=== PATIENT | female | born 1955 | race Caucasian/White ===

== ENCOUNTER 2018-09-10 08:20 | Day surgery (SDC) | payer MEDICAID ==
[2018-09-08 14:26] LABS: HEMATOCRIT 39.7 % (36.0-48.0); HEMOGLOBIN 13.3 g/dL (12-16); MCH 31.8 pg (26.0-34.0); MCHC 33.5 g/dL (31.0-37.0); RBC 4.18 10x6/uL (4.00-5.40); RDW 13.7 % (11.5-14.5)
[2018-09-08 14:43] LABS: WBC 7.5 10x3/uL (4.8-10.8)
[~2018-09-10] VITALS: Ht 170.2 cm; Wt 65.8 kg
--- NOTE | ~2018-09-10 | OP ---
PATIENT NAME: JOSE CAMEJO MEDICAL RECORD: [id number] :57 LOCATION:D.OPS ADMISSION DATE: SURGEON: IAN CUNNINGHAM MD DATE OF OPERATION: 09/10/2018 PRINCIPAL DIAGNOSIS: Multiple colon polyps greater than 85. POSTOPERATIVE DIAGNOSIS: Multiple colon polyps greater than 85. PROCEDURES: 1. Total colonoscopy to cecum. 2. Polypectomies times 2 utilizing endoscopic mucosal resection. 3. Snare polypectomies times 2. 4. Hot biopsy forceps polypectomies times 3. 5. Ablation of small adenomatous-appearing polyps within the rectum x10. SURGEON: Ian Cunningham MD INSTALLER MOLDING AND TRIM: None. BLOOD LOSS: Minimal. ANESTHESIA: General. COMPLICATIONS: None. The risks, possible complications and alternatives to procedure were explained to the patient. She elects to proceed. OPERATIVE COURSE: The patient was conveyed to the operating room electively on 09/10/2018. General anesthesia was induced by the anesthesia staff. The patient was placed in the Benavides position. A digital rectal examination was performed. A colonoscope was inserted through the anus. It was easily advanced to the cecum. The prep was marginal. There were many adenomatous-appearing polyps ranging in size from 5 mm to some that were on stalks, they were likely 3 cm in diameter. It could take perhaps 10 colonoscopies to clear the patient of all these polyps and the patient is going to be a significant risk for post-polypectomy syndromes, perforations, and for degeneration of some of these polyps into malignancies. In fact, some of these polyps may represent an invasive malignancy. My plan for this patient is to remove the most worrisome of these polyps, which is in the ascending colon and then clear the rectum of polyps and then perform a subtotal colectomy sometime in the near future with an ileorectostomy. That way, the patient could be surveilled through proctoscopy, which is going to be much easier to do than a complete colonoscopy. I think that if the patient does not undergo a subtotal colectomy and then eventually she will develop an invasive malignancy. Endoscopic mucosal resection was performed at 2 sites; one in the ascending colon and one in the rectum. This was performed in the same way and it was with submucosal injection of Eleview and then I used the snare to snare off the polyp. I then ablated the polypoid base with the argon plasma stripper opaquer utilizing the right colon setting in the forced mode. The polyp was then grasped with an endoscopic retrieval net and was withdrawn through the anus. OPERATIVE REPORT [id number] JOSE CAMEJO I then readvanced the endoscope. There were 2 polyps that were amenable to snare polypectomy. Both these were piecemeal snare polypectomies. The snare was utilized and placed around the base of the polyp. Utilizing the coagulation setting in the cut setting, I removed these 2 polyps in pieces. I then ablated the polypoid base with the argon plasma stripper opaquer. The pieces of the polyps were then grasped with an endoscopic retrieval net and were withdrawn out through the anus. I then re-advanced the scope again. I performed hot biopsy forceps polypectomies x3. I then ablated 10 of these smaller polyps, which appeared to be adenomatous polyps and were all less than 9 mm in diameter. A retroflexed view was obtained in the rectum. I then unretroflexed the scope and removed it under direct vision. I will see the patient in my office in 2-3 weeks. I will plan for HALS with subtotal colectomy sometime in the future with an ileorectal anastomosis. TRANSINT:[id number] Voice Confirmation ID: [id number] DOCUMENT ID: [id number] IAN CUNNINGHAM MD at 6753 CC: [facility] LEONARDO and ALONDRA MARROQUIN DO [id number] DICTATION DATE: 09/10/18 163 SENIOR ENVIRONMENTAL CONSULTANT: 09/10/18 2252 [facility] 09/10/18 [facility] [address] [place] [address]
[~2018-09-10 08:20] MED LIST: ATARAX 25 MG TA25 MG PO; MOBIC7.5 MG PO; SYNTHROID88 MCG PO; TRAZODONE HCL150 MG PO
[2018-09-10 09:29] VITALS: BP 120/60; Ht 170.2 cm; Wt 65.8 kg
== END 2018-09-10 17:56 | disposition home or self-care (01) ==
LOC: D.OPS 08:20
PROVIDERS: Anesthesiology
DX: D12.2 Benign neoplasm of ascending colon (principal); D12.5 Benign neoplasm of sigmoid colon; D12.8 Benign neoplasm of rectum; Z01.812 Encounter for preprocedural laboratory examination

== ENCOUNTER 2018-11-03 08:00 | Inpatient (IN) | payer MEDICAID ==
[2018-11-02 14:09] LABS: HEMATOCRIT 39.1 % (36.0-48.0); HEMOGLOBIN 13.2 g/dL (12-16); MCH 31.7 pg (26.0-34.0); MCHC 33.8 g/dL (31.0-37.0); MCV 93.8 fL (80.0-100.0); MEAN PLATELET VOLUME 9.1 fL (7.4-10.4); RBC 4.17 10x6/uL (4.00-5.40); RDW 13.7 % (11.5-14.5)
[~2018-11-03] VITALS: Ht 170.2 cm; Wt 71.2 kg
[2018-11-03] VITALS (9 sets, daily range): BP systolic 114–133; BP diastolic 60–77; BMI 24.6
--- NOTE | ~2018-11-03 | MORECARE ---
CASE MANAGEMENT DISCHARGE SUMMARY PATIENT: JOSE CAMEJO UNIT: [id number] ADM DATE: 11/03/18 AGE: 63 : 57 SEX: F ROOM/BED: D.2216 AUTHOR: AMBER CHANEY PHYSICIAN: REFERRING PHYSICIAN: IAN CUNNINGHAM MD DATE OF SERVICE: 11/08/18 Discharge Plan Patient Name: JOSE CAMEJO Facility: [facility]:[place] : 1955 Planned Disposition: Home Anticipated Discharge Date: Discharge Date: Expected LOS: Initial Reviewer: [email or web address] Initial Review Date: 11/03/2018 Generated: 11/08/18 12:44 pm Comments DCP- Discharge Planning Updated by [email or web address]: Fina Rose on 11/08/18 10:[address] Patient Name: JOSE CAMEJO Encounter No: [id number] : 1955 Primary Insurance: Synchronized [facility] Anticipated DC Date: Planned Disposition: Home External Planned Provider: : DCP follow-up note: Patient and family in agreement with discharge plan. No changes to plan. Case management will follow and assist as needed. Fina Rose DCP- Discharge Planning Updated by [email or web address]: Fina Rose on 11/04/18 2:[address] Patient Name: JOSE CAMEJO Admission Status: Elective Accout number: [id number] Admission Date: 11-03-2018 : 1955 Admission Diagnosis: Attending: IAN CUNNINGHAM Current LOS: 1 Anticipated DC Date: Planned Disposition: Home Primary Insurance: [employer] [facility] Discharge Planning Comments: CM met with patient to assess discharge planning needs. Patient stated that she lives independent at home and plans to return there when she is discharged. She has a friend who is staying with her that can help her if needed. She does not use any DME and does not thin that she will need anything at discharge. Her friend Sharan will be the one to drive her home. She stated her home is safe to return there are 5 steps to enter in her home. CM will continue to follow and assist with DC planning needs Operations Research Director: Fina Rose DCPIA - Discharge Planning Initial Assessment Updated by [email or web address]: Fina Rose on 11/04/18 3:51 pm * Is the patient Alert and Oriented? Yes * How many steps to enter\exit or inside your home? * PCP [facility] * [facility]acy [facility] * Preadmission Environment Home Alone * ADLs Independent * Equipment None * List name and contact numbers for known caregivers / representatives who currently or will assist patient after discharge: SHARAN CANTRELL (FRIEND) [phone] * Verbal permission to speak to the caregivers and representatives has been obtained from the patient. Yes * Community resources currently utilized None * Additional services required to return to the preadmission environment? No * Can the patient safely return to the preadmission environment? Yes * Has this patient been hospitalized within the prior 30 days at any hospital? No Last DP export: 11/04/18 3:01 Patient Name: JOSE CAMEJO Page 21551 at 1144 All edits/amendments must be made on the electronic document DICTATION DATE: 11/08/18 114 C D AREA SUPERVISOR: HERMINIO 11/08/18 1144 RPT#: [id number] DC DATE: STATUS: ADM IN [facility] [address] [place] [address] END OF REPORT
--- NOTE | ~2018-11-03 | MORECARE ---
CASE MANAGEMENT DISCHARGE SUMMARY PATIENT: JOSE CAMEJO UNIT: [id number] ADM DATE: 11/03/18 AGE: 63 : 57 SEX: F ROOM/BED: D.2216 AUTHOR: AMBER CHANEY PHYSICIAN: REFERRING PHYSICIAN: IAN CUNNINGHAM MD DATE OF SERVICE: 11/04/18 Discharge Plan Patient Name: JOSE CAMEJO [facility] [facility] 1955 Planned Disposition: Home Anticipated Discharge Date: Discharge Date: Expected LOS: Initial Reviewer: [email or web address] Initial Review Date: 11/03/2018 Generated: 11/04/18 4:53 pm DCPIA - Discharge Planning Initial Assessment Updated by [email or web address]: Fina Rose on 11/04/18 3:51 pm * Is the patient Alert and Oriented? Yes * How many steps to enter\exit or inside your home? * [facility]CP [facility] * [facility] * Preadmission Environment Home Alone * ADLs Independent * Equipment None * List name and contact numbers for known caregivers / representatives who currently or will assist patient after discharge: SHARAN CANTRELL (FRIEND) [phone] * Verbal permission to speak to the caregivers and representatives has been obtained from the patient. Yes * Community resources currently utilized None * Additional services required to return to the preadmission environment? No * Can the patient safely return to the preadmission environment? Yes * Has this patient been hospitalized within the prior 30 days at any hospital? No Patient Name: JOSE CAMEJO Page 54552 at 1553 All edits/amendments must be made on the electronic document DICTATION DATE: 11/04/18 155 PERSONAL TRAINER: HERMINIO 11/04/18 1552 RPT#: [id number] DC DATE: STATUS: ADM IN [facility] [address] [place] [address] END OF REPORT
--- NOTE | ~2018-11-03 | MORECARE ---
CASE MANAGEMENT DISCHARGE SUMMARY PATIENT: JOSE CAMEJO UNIT: [id number] ADM DATE: 11/03/18 AGE: 63 : 57 SEX: F ROOM/BED: D.2216 AUTHOR: RITUDOC PHYSICIAN: REFERRING PHYSICIAN: IAN CUNNINGHAM MD DATE OF SERVICE: 11/04/18 Discharge Plan Patient Name: JOSE CAMEJO Facility: [facility]:[place] : 1955 Planned Disposition: Home Anticipated Discharge Date: Discharge Date: Expected LOS: Initial Reviewer: [email or web address] Initial Review Date: 11/03/2018 Generated: 11/04/18 5:01 pm Comments DCP- Discharge Planning Updated by [email or web address]: Fina Rose on 11/04/18 2:[address] Patient Name: JOSE CAMEJO Admission Status: Elective Accout number: [id number] Admission Date: 11-03-2018 : 1955 Admission Diagnosis: Attending: IAN CUNNINGHAM Current LOS: 1 Anticipated DC Date: Planned Disposition: Home Primary Insurance: [place] [employer] [place] Discharge Planning Comments: CM met with patient to assess discharge planning needs. Patient stated that she lives independent at home and plans to return there when she is discharged. She has a friend who is staying with her that can help her if needed. She does not use any DME and does not thin that she will need anything at discharge. Her friend Sharan will be the one to drive her home. She stated her home is safe to return there are 5 steps to enter in her home. CM will continue to follow and assist with DC planning needs Irrigation Pump Installer: Fina Rose DCPIA - Discharge Planning Initial Assessment Updated by [email or web address]: Fina Rose on 11/04/18 3:51 pm * Is the patient Alert and Oriented? Yes * How many steps to enter\exit or inside your home? * [facility]CP [facility] * [facility] * Preadmission Environment Home Alone * ADLs Independent * Equipment None * List name and contact numbers for known caregivers / representatives who currently or will assist patient after discharge: SHARAN CANTRELL (FRIEND) [phone] * Verbal permission to speak to the caregivers and representatives has been obtained from the patient. Yes * Community resources currently utilized None * Additional services required to return to the preadmission environment? No * Can the patient safely return to the preadmission environment? Yes * Has this patient been hospitalized within the prior 30 days at any hospital? No Last DP export: 11/04/18 2:53 Patient Name: JOSE CAMEJO Page 22155 at 1601 All edits/amendments must be made on the electronic document DICTATION DATE: 11/04/181599 JEWELRY COATER: HERMINIO 11/04/181599 RPT#: [id number] DC DATE: STATUS: ADM IN [facility] [address] [place] [address] END OF REPORT
--- NOTE | ~2018-11-03 | OP ---
PATIENT NAME: JOSE CAMEJO MEDICAL RECORD: [id number] :57 LOCATION:D.MS Britt2216 ADMISSION DATE:11/03/18 SURGEON: IAN CUNNINGHAM MD DATE OF OPERATION: 11/03/2018 PREOPERATIVE DIAGNOSIS: Colonic polyposis. POSTOPERATIVE DIAGNOSIS: Colonic polyposis. PROCEDURE: Open subtotal colectomy. SURGEON: Ian Cunningham MD BUSINESS OFFICE MANAGER: Christal Lopez APN BLOOD LOSS: 200 cc. ANESTHESIA: General. COMPLICATIONS: None. The risks, possible complications and alternatives to procedure were explained to the patient. She elects to proceed. She wanted to see me preoperatively. I went over to the outpatient department and spoke to her as well as to a friend. We again discussed the reason for performing a subtotal colectomy. She has dozens and dozens of polyps and these likely are all adenomatous polyps. She is going to be at high risk for developing a colon malignancy if she does not already have one. I have gone and endoscopically removed all of the rectal polyps that I could identify. We were hoping today to remove her colon so that it does not need to be surveilled in the future and also will eliminate it as a source of polyp formation and decrease the chance that she will develop a malignancy in the future. OPERATIVE COURSE: The patient was conveyed to the operating room electively on 11/03/2018. General anesthesia was induced by the anesthesia staff. The patient was placed in lithotomy position in an adjustable stirrups. The abdomen and genitals were sterilely prepped and draped. A lower midline incision was accomplished through a prior scar. Sharp dissection was carried down to the level of the anterior fascia, which was incised. Peritoneal cavity was entered sharply. An Flo retractor was placed. We began on the right side of the abdomen. We took down the fold of Treves. I then stapled across the distal ileum with a KISHAN-75 stapler utilizing a blue load. We incised along the white line of Toldt and also mobilized the hepatic flexure of the colon. We swept down the duodenum as well as the right ureter and both of these were retracted for protection. I began to seal and divide the right colonic mesentery. This was done with the Super Jaw EnSeal device. Along the transverse colon, we took down the omentum and excised it utilizing the Super Jaw EnSeal device. We entered the lesser sac. During the dissection, the duodenum and stomach were undamaged. We then came across the mesentery of the transverse colon and sealed and divided it with the Super Jaw EnSeal device. OPERATIVE REPORT [id number] JOSE CAMEJO I incised along the left white line of Toldt. I folded the left colon medially. Swept down the left ureter, which was retracted for protection. We took down the splenic flexure of the colon. We then sealed and divided the left colon mesentery with the Super Jaw EnSeal device. The inner sigmoid fossa was incised. We mobilized the sigmoid colon. I chose the distal extent of my resection to be the distal sigmoid colon. A window was created in the mesentery of the sigmoid colon and I stapled across this area with a KISHAN-75 stapler. I then took down the remaining mesentery with the Super Jaw EnSeal device. We then put normal saline in the pelvis and I went below and under pressure, I tested the anastomosis pneumatically and there was no bubbling of air. We ensured the small bowel was not twisted on its mesentery. I opened up the colon on the back table and there were innumerable polyps. I then rescrubbed and redraped. Again, we ensured the small bowel was not twisted on its mesentery. We irrigated and aspirated. There was no bleeding. The midline fascia was closed with a running horizontal mattress #1 PDS as well as the subdermis was approximated with interrupted 3-0 Vicryls and the skin was approximated with a running intracuticular 3-0 Vicryl. Benzoin and Steri-Strips were applied. The patient was then extubated and conveyed to post-anesthesia care unit where she was in stable condition. She will be admitted to the med/surg unit and her pain will be controlled utilizing an epidural pain pump. TRANSINT:[id number] Voice Confirmation ID: [id number] DOCUMENT ID: [id number] IAN CUNNINGHAM MD at 1204 CC: [facility] and ALONDRA MARROQUIN DO [id number] DICTATION DATE: 11/03/18 151 OPTICIAN MANAGER: 11/03/182024 ADM IN [facility] [place] [id number] [place] [address]
--- NOTE | ~2018-11-03 | MORECARE ---
CASE MANAGEMENT DISCHARGE SUMMARY PATIENT: JOSE CAMEJO UNIT: [id number] ADM DATE: 11/03/18 AGE: 63 : 57 SEX: F ROOM/BED: D.2216 AUTHOR: AMBER CHANEY PHYSICIAN: REFERRING PHYSICIAN: IAN CUNNINGHAM MD DATE OF SERVICE: 11/08/18 Discharge Plan Patient Name: JOSE CAMEJO Facility: [facility]:[place] : 1955 Planned Disposition: Home Anticipated Discharge Date: Discharge Date: 11/08/2018 Expected LOS: 0 Initial Reviewer: [email or web address] Initial Review Date: 11/03/2018 Generated: 11/08/18 4:03 pm Comments DCP- Discharge Planning Updated by [email or web address]: Fina Rose on 11/08/18 10:[address] Patient Name: JOSE CAMEJO Encounter No: [id number] : 1955 Primary Insurance: [employer] [facility] Anticipated DC Date: Planned Disposition: Home External Planned Provider: : DCP follow-up note: Patient and family in agreement with discharge plan. No changes to plan. Case management will follow and assist as needed. Fina Rose DCP- Discharge Planning Updated by [email or web address]: Fina Rose on 11/04/18 2:[address] Patient Name: JOSE CAMEJO Admission Status: Elective Accout number: [id number] Admission Date: 11-03-2018 : 1955 Admission Diagnosis: Attending: IAN CUNNINGHAM Current LOS: 1 Anticipated DC Date: Planned Disposition: Home Primary Insurance: [employer] [facility] Discharge Planning Comments: CM met with patient to assess discharge planning needs. Patient stated that she lives independent at home and plans to return there when she is discharged. She has a friend who is staying with her that can help her if needed. She does not use any DME and does not thin that she will need anything at discharge. Her friend Sharan will be the one to drive her home. She stated her home is safe to return there are 5 steps to enter in her home. CM will continue to follow and assist with DC planning needs Administrative Liaison: Fina Rose DCPIA - Discharge Planning Initial Assessment Updated by [email or web address]: Fina Rose on 11/04/18 3:51 pm * Is the patient Alert and Oriented? Yes * How many steps to enter\exit or inside your home? * PCP [facility] * [facility] * Preadmission Environment Home Alone * ADLs Independent * Equipment None * List name and contact numbers for known caregivers / representatives who currently or will assist patient after discharge: SHARAN CANTRELL (FRIEND) [phone] * Verbal permission to speak to the caregivers and representatives has been obtained from the patient. Yes * Community resources currently utilized None * Additional services required to return to the preadmission environment? No * Can the patient safely return to the preadmission environment? Yes * Has this patient been hospitalized within the prior 30 days at any hospital? No Last DP export: 11/08/18 10:44 Patient Name: JOSE CAMEJO Page 36497 at 1503 All edits/amendments must be made on the electronic document DICTATION DATE: 11/08/18 1503 TRAINING INSTRUCTOR: HERMINIO 11/08/18 1503 RPT#: [id number] DC DATE:11/08/18 STATUS: DIS IN [facility] [address] [place] [address] END OF REPORT
[2018-11-04 01:17] VITALS: BP 136/79
[2018-11-04 04:33] VITALS: BP 124/82
[2018-11-04 05:31] LABS: BASOPHILS 0 % (0-2); EOSINOPHILS 0 % (0-7); HEMATOCRIT 33.8 % (36.0-48.0); HEMOGLOBIN 11.5 g/dL (12-16); IMMATURE GRANULOCYTES 0.1 % (0-5); LYMPHOCYTES 16.8 % (15-50); MCH 31.1 pg (26.0-34.0); MEAN PLATELET VOLUME 9.3 fL (7.4-10.4); NEUTROPHILS 71.1 % (40-80); PLATELET COUNT 264 10x3/uL (130-400); RDW 13.8 % (11.5-14.5)
[2018-11-04 05:55] LABS: ALBUMIN 2.8 g/dL (3.4-5.0); ALKALINE PHOSPHATASE 56 U/L (46-116); ALT (SGPT) 13 U/L (10-68); BILIRUBIN - TOTAL 0.27 mg/dL (0.2-1.3); CALC OSMOLALITY 279 mosm/kg (275-300); CALCIUM 7.5 mg/dL (8.5-10.1); CARBON DIOXIDE 24.6 mmol/L (21.0-32.0); CHLORIDE - SERUM 106 mmol/L (98-107); CREATININE - SERUM 0.8 mg/dL (0.6-1.3); GLUCOSE 116 mg/dL (74-106); MAGNESIUM - SERUM 1.5 mg/dL (1.8-2.4); PHOSPHOROUS 3.3 mg/dL (2.5-4.9); POTASSIUM - SERUM 3.8 mmol/L (3.5-5.1); PROTEIN - SERUM 6.7 g/dL (6.4-8.2); SODIUM 141 mmol/L (136-145); TROPONIN-I < 0.017 ng/mL (0.000-0.060); UREA NITROGEN 6 mg/dL (7-18); eGFR NON AFRICAN AMERICAN 77 mL/min (90-120)
[2018-11-04 05:56] LABS: MCV 91.4 fL (80.0-100.0); WBC 10.7 10x3/uL (4.8-10.8)
[2018-11-04 09:12] VITALS: BP 134/81
[2018-11-04 10:22] VITALS: Ht 170.2 cm; Wt 71.2 kg
[2018-11-04 19:00] VITALS: BP 126/81
[2018-11-05 00:58] VITALS: BP 148/87
[2018-11-05 05:44] VITALS: BP 139/56
[2018-11-05 09:00] VITALS: BP 145/85
[2018-11-05 13:13] VITALS: BP 141/93
[2018-11-05 16:39] VITALS: BP 148/82
[2018-11-05 20:00] VITALS: BP 110/79
[2018-11-06] VITALS: BP 115/76
[2018-11-06 04:00] VITALS: BP 99/70
[2018-11-06 08:32] VITALS: BP 113/65
[2018-11-06 13:43] VITALS: BP 106/65
[2018-11-06 16:20] VITALS: BP 101/67
[2018-11-06 20:00] VITALS: BP 99/65
[2018-11-07] VITALS: BP 99/61
[2018-11-07 04:00] VITALS: BP 109/57
[2018-11-07 08:30] VITALS: BP 96/53
[2018-11-07 11:30] VITALS: BP 96/58
[2018-11-07 16:30] VITALS: BP 128/67
[2018-11-07 20:00] VITALS: BP 110/74
[2018-11-08] VITALS: BP 100/52
[2018-11-08 04:00] VITALS: BP 113/70
[2018-11-08 08:45] VITALS: BP 102/59
[2018-11-08] MEDS ORDERED: HYDROCODON-ACE1 EAC7 PO (11:29)
[2018-11-08 13:05] VITALS: BP 93/56
== END 2018-11-08 14:32 | disposition home or self-care (01) | DRG 331 ==
LOC: D.MS 08:00 → D.SDCHOLD 08:00 → D.MS 15:20
PROVIDERS: Anesthesiology; Surgery
PROC: 0DTE0ZZ Resection of Large Intestine, Open Approach (ICD-10-PCS; principal; 2018-11-03 10:30)
DX: D37.4 Neoplasm of uncertain behavior of colon (principal)